=== PATIENT | female | born 1945 | race Caucasian/White ===

== ENCOUNTER → 2017-10-03 | Outpatient (CLI) | payer OTHER ==
[~2017-10-03] MED LIST: AMLO-3 PO; ASPI81TA28 PO; ATOR-24 PO; FERR1TAB23 PO; GLIP-199 PO; HYDR25TA5 PO; INSDGI SC; ISOS30TA13 PO; METO100T14 PO; NTRGSL/4 SL; NXM/40 PO; OMEGCAP2 PO; REGADENOSON 0.4 MG/5 ML SYR ONE; SERT-234 PO
--- NOTE | 2017-10-06 13:20 | MYOCARDIAL PERFUSION SCAN ---
ONE-DAY NUCLEAR MEDICINE TECHNETIUM-99M CARDIOLITE MYOCARDIAL PERFUSION SCAN CLINICAL HISTORY: The patient has a known history of coronary artery disease and has experienced a recent chest pain syndrome. COMPARISON: None. TECHNIQUE: TECHNIQUE: For the stress portion of the study, 32.9 mCi of Technetium 99 m Cardiolite IV was injected at 11:40 a.m. on 10/03/2017. Thirty minutes following the injection, imaging of the heart was performed in multiple projections. For the rest portion of the study, 10.5 mCi of Technetium 99 m Cardiolite was injected IV at 9:45 a.m. One hour following the injection, imaging of the heart was performed in the same projections. For the stress portion of the study, 0.4 mg of Lexiscan was injected intravenously as per protocol. The patient did not experience chest discomfort. Baseline EKG notes atrial sensing and ventricular pacing. There were no ST-segment changes seen during the Lexiscan infusion. Following the study, the patient was hemodynamically stable without complaints. FINDINGS: The short axis, vertical long axis, and horizontal long axis images were reviewed in detail. There is normal uptake of the radionuclide at both stress and rest. This excludes a prior myocardial infarction and evidence of stress induced myocardial ischemia. The left ventricle demonstrates normal systolic function without wall motion abnormalities. The ejection fraction is calculated at 65%. CONCLUSIONS: 1. No scintigraphic evidence of a prior myocardial infarction or stress induced myocardial ischemia. 2. No Lexiscan induced chest pain. 3. No Lexiscan induced echocardiogram changes. 4. Normal left ventricular systolic function with an ejection fraction of 65%. There are no wall motion abnormalities.
== END | disposition home or self-care (01) ==
LOC: C.NUCL 09:23
PROVIDERS: ATTEND Internal Medicine Cardiovascular Disease
DX: I25.10 Atherosclerotic heart disease of native coronary artery without angina pectoris (principal)